=== PATIENT | male | born 1950 ===

== ENCOUNTER 2016-10-30 17:15 | Inpatient (IN) | payer SELFPAY ==
[2016-10-30] MEDS ORDERED: Sodium Chloride 0.9% 1,000 ML IV STA ×2 (17:35→19:46)
--- NOTE | 2016-10-30 17:41 | ED PDOC ---
HPI: Abdomen Time Seen by Provider: 10/30/16 17:28 Chief Complaint (Nursing): GI Problem Chief Complaint (Provider): vomiting History Per: Patient Additional Complaint(s): 65-year-old male with history of hypertension and coronary artery disease presents to emergency department with vomiting and diarrhea that started earlier today. Patient states vomitus looks like coffee grounds. Patient also had episode of bloody diarrhea at home. When he was in the bathroom he states he started to feel faint and almost passed out. He caught himself before he fell to the ground and denies any head injury or LOC. Patient feels nausea upon arrival. He denies any chest pain, SOB or PINEDA, no fever or chills. Patient states he takes plavix daily and he recently started taking naprosyn for chronic leg pain. Prior to starting the naprosyn, he was taking motrin daily to manage leg pain. Patient denies any abdominal pain or headache. Past Medical History Reviewed: Historical Data, Nursing Documentation, Vital Signs Vital Signs: Last Vital Signs Temp 98.1 F 10/30/16 17:17 Pulse 120 H 10/30/16 17:17 Resp 20 10/30/16 17:17 BP 106/69 10/30/16 17:17 Pulse Ox 100 10/30/16 18:39 - Medical History PMH: HTN, Hypercholesterolemia - Surgical History Surgical History: CABG - Family History Family History: States: No Known Family Hx - Living Arrangements Living Arrangements: With Family - Social History Current smoker - smoking cessation education provided: Yes (1/2 ppd) Alcohol: Social Drugs: Denies - Home Medications Home Medications: Ambulatory Orders Medication Instructions Recorded Clopidogrel [Plavix] 75 mg PO HS 06/09/16 Losartan/Hydrochlorothiazide 1 tab PO HS 06/09/16 [Losartan-Hctz 50-12.5 mg Tab] Metoprolol Tartrate [Lopressor] 25 mg PO Q12H 10/30/16 Multivitamin [Multi-Vitamin Daily] 1 tab PO DAILY 10/30/16 metFORMIN [glucOPHAGE] 500 mg PO DAILY 10/30/16 - Allergies Allergies/Adverse Reactions: Allergies Allergy/AdvReac Type Severity Reaction Status Date / Time No Known Allergies Allergy Verified 06/09/16 15:31 Review of Systems ROS Statement: Except As Marked, All Systems Reviewed And Found Negative Constitutional: Negative for: Fever Cardiovascular: Negative for: Chest Pain, Palpitations Respiratory: Negative for: Cough Gastrointestinal: Positive for: Nausea, Vomiting, Other (blood in stool, blood in vomit). Negative for: Abdominal Pain, Diarrhea Neurological: Negative for: Headache, Dizziness Physical Exam - Reviewed Nursing Documentation Reviewed: Yes Vital Signs Reviewed: Yes - Physical Exam Appears: Positive for: Well, Non-toxic, No Acute Distress Skin: Positive for: Pallor Eye Exam: Positive for: Normal appearance, EOMI, PERRL Cardiovascular/Chest: Positive for: Regular Rate, Rhythm Respiratory: Positive for: Normal Breath Sounds Gastrointestinal/Abdominal: Positive for: Soft. Negative for: Tenderness, Distended, Guarding, Rebound Back: Negative for: L CVA Tenderness, R CVA Tenderness Extremity: Positive for: Normal ROM. Negative for: Pedal Edema Neurologic/Psych: Positive for: Alert, Oriented - Laboratory Results Result Diagrams: 10/30/16 17:40 10/30/16 17:40 - ECG Interpretation Of ECG: Sinus tach 121 bpm with PVC's. Reviewed by PA and ED attending. O2 Sat by Pulse Oximetry: 100 Pulse Ox Interpretation: Normal - Other Rad CXR X-Ray: Interpreted by Me, Viewed By Me X-Ray Interpretation: ? mass left upper lobe Medical Decision Making Medical Decision Makin66 year old male with bloody vomitus and stool x 1 day Plan: EKG CXR IVF CBC CMP Trop PT PTT IV zofran PMD is Dr. Nichols, case was d/w Andrew Reagan who will admit patient. CXR shows ? TANGELA mass. CT chest, abd and pelvis ordered with IV and oral contrast. Case was d/w GI client care consultant, Dr. Cornelius who will see patient on consult. Protonix 40 mg IV q 12 hrs ordered as per Dr. Cornelius and drip was canceled. C diff also ordered as per Dr. Cornelius. Patient is aware of admission and agrees to stay. Disposition - Clinical Impression Clinical Impression: GI (gastrointestinal bleed) - Patient ED Disposition Is Patient to be Admitted: Yes - Disposition Disposition Time: 19:10 Condition: SERIOUS - Pt Status Changed To: Hospital Disposition Of: Inpatient - Admit Certification Admit to Inpatient:: After my assessment, the patient will require hospitalization for at least two midnights. This is because of the severity of symptoms shown, intensity of services needed, and/or the medical risk in this patient being treated as an outpatient. - POA Present On Arrival: None
[2016-10-30] MEDS ORDERED: Pantoprazole 40 MG in Sodium Chloride 0.9% 100 ML IVPB SCH (18:00)
[2016-10-30 18:12] LABS: BASO # 0.1 K/uL (0.0-0.2); BASO % 0.7 % (0.0-2.0); EOS # 0.1 K/uL (0.0-0.7); EOS % 0.7 % (0.0-4.0); HEMATOCRIT 27.3 % (35.0-51.0); LYMPH # 2.2 K/uL (1.0-4.3); LYMPH % 18.1 % (20.0-40.0); MEAN CELL VOLUME 96.5 fl (80.0-94.0); MEAN CORPUSCULAR HEMOGLOBIN 31.2 pg (27.0-31.0); MEAN CORPUSCULAR HGB CONC 32.3 g/dL (33.0-37.0); MEAN PLATELET VOLUME 7.2 fl (7.2-11.7); MONO # 0.7 K/uL (0.0-0.8); MONO % 5.6 % (0.0-10.0); NEUT # 9.2 K/uL (1.8-7.0); NEUT % 74.9 % (50.0-75.0); RED CELL DISTRIBUTION WIDTH 16.5 % (11.5-14.5); WHITE BLOOD COUNT 12.2 K/uL (4.8-10.8)
[2016-10-30] MEDS ORDERED: Iohexol 240 (50 ml) PO STA (18:39)
[2016-10-30 18:46] LABS: ALB/GLOB RATIO 1.1 (1.0-2.1); ALKALINE PHOSPHATASE 89 U/L (38-126); ALT/SGPT 22 U/L (21-72); AST/SGOT 34 U/L (17-59); BILIRUBIN,TOTAL 0.5 mg/dl (0.2-1.3); BLOOD UREA NITROGEN 58 mg/dl (9-20); CALCIUM 8.8 mg/dL (8.4-10.2); CARBON DIOXIDE 23 mmol/L (22-30); CHLORIDE 103 mmol/L (98-107); GFR AFRICAN-AMERICAN > 60; GLUCOSE,RANDOM 197 mg/dL (75-110); SODIUM 137 mmol/l (132-148); TOTAL PROTEIN 6.6 G/DL (6.3-8.2)
[2016-10-30 19:09] LABS: POTASSIUM 4.5 MMOL/L (3.6-5.0)
[2016-10-30 19:40] LABS: PARTIAL THROMBOPLASTIN TIME 21.9 SECONDS (23.3-32.5)
[2016-10-30 19:50] LABS: VENOUS BLOOD GAS BASE EXCESS 1.3 mmol/L (0.0-2.0); VENOUS BLOOD GAS PCO2 47 mmHg (40-60); VENOUS BLOOD PH 7.37 (7.32-7.43)
[2016-10-30] MEDS ORDERED: Iohexol 300 100 ML IJ ONE (22:05)
[2016-10-30] MEDS ORDERED: Sodium Chloride 0.9% 50 ML IV ONE (22:05)
[2016-10-30 23:41] VITALS: BMI 28.5
[2016-10-31] MEDS ORDERED: Pantoprazole 40 MG in Sodium Chloride 0.9% 100 ML IVPB SCH (00:30)
[2016-10-31] MEDS: Sodium Chloride 0.9% 1,000 ML IV SCH ×3 (00:43→20:00)
[2016-10-31] MEDS: Piperacillin/Tazobact 4.5 GM in Sodium Chloride 0.9% 100 ML IVPB SCH ×3 (01:04→17:09)
[2016-10-31] MEDS: Pantoprazole 40 MG in Sodium Chloride 0.9% 100 ML IV SCH ×3 (01:45→12:39)
[2016-10-31] MEDS ORDERED: Lidocaine 2% GEL TOP ONE (03:25)
[2016-10-31] MEDS: Lidocaine 5% Patch TD SCH ×2 (03:45→09:30)
--- NOTE | 2016-10-31 08:03 | RAD ---
HISTORY: clearance COMPARISON: No prior. FINDINGS: LUNGS: There is round opacities/ lesion at the left lung upper lobe suspicious for neoplasm. The differential diagnosis includes less likely rounded pneumonia. PLEURA: No significant pleural effusion identified, no pneumothorax apparent. CARDIOVASCULAR: Normal. OSSEOUS STRUCTURES: No significant abnormalities. VISUALIZED UPPER ABDOMEN: Normal. OTHER FINDINGS: None. IMPRESSION: Suspicious for mass lesion at the left lung upper lobe versus less likely pneumonia. Please correlate clinically. If indicated further assessment by CT of the chest may be obtained.
--- NOTE | 2016-10-31 08:14 | CP.PCM.HP ---
History of Present Illness - History of Present Illness History of Present Illness: pt admitted for syncope, coffee ground emesis and brbpr. pt was found on cxr and ct chest, abd and pelvis to have a mass to left upper chest. pt asmoke approx 1/2 ppd for approx 50 yrs. no further vomiting pt w/ some cough. Present on Admission - Present on Admission Any Indicators Present on Admission: No Review of Systems - Respiratory Respiratory: As Per HPI, Cough - Gastrointestinal Gastrointestinal: As Per HPI, Hematemesis, Hematochezia - Neurological Neurological: As Per HPI, Syncope Past Patient History - Past Medical History & Family History Past Medical History?: Yes - Past Social History Smoking Status: Current Some Days Smoker - CARDIAC Hx Hypercholesterolemia: Yes Hx Hypertension: Yes - PULMONARY Hx Respiratory Disorders: No Other/Comment: SMOKER - NEUROLOGICAL Hx Neurological Disorder: No - HEENT Hx HEENT Problems: No - RENAL Hx Chronic Kidney Disease: No - INTEGUMENTARY Hx Dermatological Problems: Yes Hx Cellulitis: Yes Other/Comment: CHRONIC LEG PAIN - MUSCULOSKELETAL/RHEUMATOLOGICAL Hx Falls: No - GASTROINTESTINAL Hx Gastrointestinal Disorders: No - GENITOURINARY/GYNECOLOGICAL Hx Genitourinary Disorders: No - PSYCHIATRIC Hx Substance Use: No - SURGICAL HISTORY Hx Coronary Artery Bypass Graft: Yes Hx Coronary Stent: Yes Hx Femoral-Popliteal Bypass Graft: Yes - ANESTHESIA Hx Anesthesia: Yes Hx Anesthesia Reactions: No Hx Malignant Hyperthermia: No Meds Allergies/Adverse Reactions: Allergies Allergy/AdvReac Type Severity Reaction Status Date / Time No Known Allergies Allergy Verified 06/09/16 15:31 Physical Exam - Constitutional Appears: Well, Non-toxic, No Acute Distress - Head Exam Head Exam: ATRAUMATIC, NORMAL INSPECTION, NORMOCEPHALIC - Eye Exam Eye Exam: EOMI, Normal appearance, PERRL Pupil Exam: NORMAL ACCOMODATION, PERRL - ENT Exam ENT Exam: Mucous Membranes Moist, Normal Exam - Neck Exam Neck exam: Positive for: Normal Inspection - Respiratory Exam Respiratory Exam: Clear to Auscultation Bilateral, NORMAL BREATHING PATTERN - Cardiovascular Exam Cardiovascular Exam: REGULAR RHYTHM, RRR, +S1, +S2 - GI/Abdominal Exam GI & Abdominal Exam: Normal Bowel Sounds, Soft. absent: Tenderness - Extremities Exam Extremities exam: Positive for: full ROM, normal capillary refill, normal inspection, pedal pulses present - Back Exam Back exam: NORMAL INSPECTION - Neurological Exam Neurological exam: Alert, CN II-XII Intact, Normal Gait, Oriented x3, Reflexes Normal - Psychiatric Exam Psychiatric exam: Normal Affect, Normal Mood - Skin Skin Exam: Dry, Intact, Normal Color, Warm Results - Vital Signs Recent Vital Signs: Last Vital Signs Temp 99.4 F 10/31/16 06:00 Pulse 115 H 10/31/16 06:00 Resp 23 10/31/16 06:00 BP 104/62 10/31/16 06:00 Pulse Ox 97 10/31/16 06:00 - Labs Result Diagrams: 10/30/16 17:40 10/30/16 17:40 Labs: Laboratory Results - last 24 hr 10/30/16 10/30/16 10/30/16 19:43 21:00 22:44 pO2 27 L VBG pH 7.37 VBG pCO2 47 VBG HCO3 24.6 VBG Total CO2 28.6 H VBG O2 Sat (Calc) 53.2 VBG Base Excess 1.3 VBG Potassium 3.6 Sodium 139.0 Chloride 108.0 H Glucose 150 H Lactate 2.6 H FiO2 21.0 Blood Gas Comments Lactate 2.6 Crit Value Called To [email or web address] Crit Value Called By 203 Crit Value Read Back Y Blood Gas Notified Time 1948 Venous Blood Potassium 3.6 Blood Type O POSITIVE O POSITIVE Antibody Screen Negative Crossmatch See Detail BBK History Checked No verified bt No verified bt Assessment & Plan (1) Lung mass Assessment and Plan: heme/onc, pulm smoking cessation Status: Acute (2) GI (gastrointestinal bleed) Assessment and Plan: gi ostretide ivf icu care zosyn Status: Acute (3) DVT prophylaxis Assessment and Plan: scd and ae hose no anticoag r/t gib Status: Acute Decision To Admit - Pt Status Changed To: Hospital Disposition Of: Inpatient - Admit Certification Admit to Inpatient:: After my assessment, the patient will require hospitalization for at least two midnights. This is because of the severity of symptoms shown, intensity of services needed, and/or the medical risk in this patient being treated as an outpatient. - . Bed Request Type: Intensive Care Admitting Physician: Lexi Nichols
[2016-10-31] MEDS ORDERED: Pneumococcal 23-Valent Vaccine IM ONE (09:00)
--- NOTE | 2016-10-31 09:06 | CP.CCUPN ---
CCU Subjective - Physician Review Events Since Last Encounter (Free Text): Chief complaint: N/V and GI Bleeding HPI: Pt is a 65-year-old male with a pmhx of hypertension, extensive 50 + pack year history of smoking and coronary artery disease presents to emergency department with vomiting and diarrhea that started earlier today accompanied by melena. Patient states vomitus looks like coffee grounds. When he was in the bathroom he states he started to feel faint and almost passed with no trauma. Patient states he takes plavix daily for extensive cardiac history which includes 11 stents and 5 prior ND's along with 4 vessel CABG. Pt recently started taking naprosyn for chronic leg pain. Last Vital Signs Temp 98.1 F 10/30/16 17: Pulse 120 H 10/30/16 17:17 Resp 20 10/30/16 17:17 BP 106/69 10/30/16 17:17 Pulse Ox 100 10/30/16 18:39 PMH: HTN, Hypercholesterolemia Surgical History: 4 vessel CABG Family History: No Known Family Hx Living Arrangements: With Family Social History- Current smoker - smoking cessation education provided: Yes (1/2 ppd) Home Medications: Ambulatory Orders Medication Instructions Recorded Clopidogrel [Plavix] 75 mg PO HS 06/09/16 Losartan/Hydrochlorothiazide 1 tab PO HS 06/09/16 [Losartan-Hctz 50-12.5 mg Tab] Metoprolol Tartrate [Lopressor] 25 mg PO Q12H 10/30/16 Multivitamin [Multi-Vitamin Daily] 1 tab PO DAILY 10/30/16 metFORMIN [glucOPHAGE] 500 mg PO DAILY 10/30/16 Allergies/Adverse Reactions: Allergies Allergy/AdvReac Type Severity Reaction Status Date / Time No Known Allergies Allergy Verified 06/09/16 15:31 - ECG Interpretation Of ECG: Sinus tach 121 bpm with PVC's. Reviewed by PA and ED attending. O2 Sat by Pulse Oximetry: 100 Pulse Ox Interpretation: Normal CCU Objective - Vital Signs / Intake & Output Vital Signs (Last 4 hours): Vital Signs Temp Pulse Resp BP Pulse Ox 10/31/16 06:00 99.4 F 115 H 23 104/62 97 Intake and Output (Last 8hrs): Intake & Output 10/30/16 10/31/16 10/31/16 22:59 06:59 14:59 Intake Total 1411 Output Total 880 Balance 531 Weight 171 lb 8 oz Intake: IV 750 Intake, Piggyback 100 Blood Product 561 Output: Urine 880 Urine, Voided 880 Other: # Bowel Movements 1 - Physical Exam Head: Positive for: Atraumatic, Normocephalic Pupils: Positive for: PERRL Extroacular Muscles: Positive for: EOMI Conjunctiva: Positive for: Normal Mouth: Positive for: Moist Mucous Membranes Neck: Positive for: Normal Range of Motion Respiratory/Chest: Positive for: Clear to Auscultation, Good Air Exchange, Respiratory Distress, Accessory Muscle Use Cardiovascular: Positive for: Regular Rate and Rhythm, Murmurs, Normal S1, S2 Upper Extremity: Positive for: Normal Inspection, Cyanosis, Edema Lower Extremity: Positive for: Normal Inspection, Edema Neurological: Positive for: GCS=15, CN II-XII Intact, Speech Normal Skin: Positive for: Diaphoretic Psychiatric: Positive for: Alert, Oriented x 3, Normal Insight, Normal Concentration - Medications Active Medications: Active Medications Generic Name Dose Route Start Last Admin Trade Name Freq PRN Reason Stop Dose Admin Sodium Chloride 1,000 mls @ 150 mls/hr 10/31/16 00:30 10/31/16 00:43 Sodium Chloride 0.9% IV 11/01/16 00:25 150 mls/hr .Q6H40M JOSE Administration Octreotide Acetate 1,250 mcg/ 252.5 mls @ 10.1 mls/hr 10/31/16 00:30 01:05 Sodium Chloride IV 10.1 mls/hr .Q24H JOSE Administration Protocol 50 MCG/HR Pantoprazole Sodium 40 mg/ 100 mls @ 20 mls/hr 10/31/16 00:30 10/31/16 06:08 Sodium Chloride IV 20 mls/hr .Q5H JOSE Administration 8 MG/HR Piperacillin Sod/Tazobactam 100 mls @ 100 mls/hr 10/31/16 01:00 10/31/16 01: 04 Sod 4.5 gm/ Sodium Chloride IVPB 100 mls/hr Q8 JOSE Administration Lidocaine 1 ea 10/31/16 09:00 10/31/16 03:45 Lidoderm TD 1 ea DAILY JOSE Administration Ondansetron HCl 4 mg 10/31/16 00:39 Zofran Inj IVP Q6 PRN Nausea/Vomiting Pantoprazole Sodium 40 mg 10/31/16 18:00 Protonix Inj IVP Q12 JOSE Pneumococcal Polyvalent Vaccine 0.5 ml 10/31/16 09:00 Pneumovax 23 Vaccine IM 10/31/16 09:01 .ONCE ONE - Patient Studies Lab Studies: Lab Studies 10/30/16 10/30/16 10/30/16 Range/Units 22:44 21:00 19:43 pO2 27 L (30-55) mm/Hg VBG pH 7.37 (7.32-7.43) VBG pCO2 47 (40-60) mmHg VBG HCO3 24.6 mmol/L VBG Total CO2 28.6 H (22-28) mmol/L VBG O2 Sat (Calc) 53.2 (40-65) % VBG Base Excess 1.3 (0.0-2.0) mmol/L VBG Potassium 3.6 (3.6-5.2) mmol/L Sodium 139.0 (132-148) mmol/L Chloride 108.0 H (98-107) mmol/L Glucose 150 H (75-110) mg/dL Lactate 2.6 H (0.7-2.1) mmol/L FiO2 21.0 % Blood Gas Comments Lactate 2.6 Crit Value Called To [email or web address] Crit Value Called By Crit Value Read Back Y Blood Gas Notified Time 1948 Venous Blood Potassium 3.6 (3.6-5.2) mmol/L Blood Type O POSITIVE O POSITIVE Antibody Screen Negative Crossmatch See Detail BBK History Checked No verified bt No verified bt Laboratory Results - last 24 hr 10/30/16 10/30/16 10/30/16 19:43 21:00 22:44 pO2 27 L VBG pH 7.37 VBG pCO2 47 VBG HCO3 24.6 VBG Total CO2 28.6 H VBG O2 Sat (Calc) 53.2 VBG Base Excess 1.3 VBG Potassium 3.6 Sodium 139.0 Chloride 108.0 H Glucose 150 H Lactate 2.6 H FiO2 21.0 Blood Gas Comments Lactate 2.6 Crit Value Called To Robinjulienne Crit Value Called By 203 Crit Value Read Back Y Blood Gas Notified Time 1948 Venous Blood Potassium 3.6 Blood Type O POSITIVE O POSITIVE Antibody Screen Negative Crossmatch See Detail BBK History Checked No verified bt No verified bt Review of Systems - EENT Eyes: UNREMARKABLE Ears: UNREMARKABLE Nose/Mouth/Throat: UNREMARKABLE - Cardiovascular Cardiovascular: UNREMARKABLE - Respiratory Respiratory: UNREMARKABLE - Gastrointestinal Gastrointestinal: UNREMARKABLE - Genitourinary Genitourinary: UNREMARKABLE - Musculoskeletal Musculoskeletal: UNREMARKABLE - Integumentary Integumentary: UNREMARKABLE - Neurological Neurological: UNREMARKABLE - Psychiatric Psychiatric: UNREMARKABLE - Endocrine Endocrine: UNREMARKABLE - Hematologic/Lymphatic Hematologic: UNREMARKABLE Critical Care Progress Note - Ventilator Checklist Head of Bed 30 Degrees: Yes Daily Sedation Vacation: No Daily Assessment of Readiness to Wean: No Daily Spontaneous Breathing Trial: No PUD Prophalyxis: No DVT Prophylaxis: No Oral Care with Chlorhexidine Gluconate {CHG}: No - Nutrition Nutrition: Nutrition Category Date Time Status NPO Diet [DIET] Diets 10/30/16 Breakfast Active Assessment/Plan - Assessment and Plan (Free Text) Assessment: Admit to MICU 1) Upper Gi bleeding - protonix drip started - 2 units prbc transfused - 1 unit platelets due to use of plavix and continued gi bleed - Dr. faustin called Sandostatin drip started due to h/o of ETOH and possible varices 2) H/o CABG and CAD along with previous ND - goal on Hg is to bring closer to 10 3) HTN- currently high will hold all bp medications for now until the pt can be stabilized - Date & Time Date: 10/31/16 Time: 09:13
--- NOTE | 2016-10-31 10:11 | CARD ---
APPROVED REPORT EKG Measurement Heart [id number] <Conclusion> Sinus tachycardia with occasional premature ventricular complexes Inferior infarct, age undetermined Abnormal ECG
--- NOTE | 2016-10-31 12:00 | CT ---
PROCEDURE: CT Chest, Abdomen and Pelvis with intravenous contrast HISTORY: assess ? TANGELA mass, GI bleed COMPARISON: October 30, 2016. Chest radiograph. Summary of findings on the comparison examination: Left upper lobe mass suspicious for neoplasm. GI bleed. TECHNIQUE: IV dose administered: 95 cc Omnipaque 300. Radiation dose: Total exam DLP = 1215.85 mGy-cm. This CT exam was performed using one or more of the following dose reduction techniques: Automated exposure control, adjustment of the mA and/or kV according to patient size, and/or use of iterative reconstruction technique. FINDINGS: CT CHEST WITH CONTRAST: LUNGS: Spiculated irregular partially necrotic left upper lobe mass is 4.7 x 5.9 x 5.1 cm. The finding undoubtedly represents neoplasm. Additional smaller lesions in the left lung including superior segment pleural base mass 1.3 x 1.7 cm. Additional nodular densities scattered throughout the left upper and left lower lobe. There are no pulmonary nodules in the right lung. MEDIASTINUM: Unremarkable. Normal caliber aorta and pulmonary arterial trunk. No aortic dissection. Normal size heart. LYMPH NODES: No appreciable lymphadenopathy or other findings to suggest metastatic disease beyond the the right lung/pleura. PLEURA: Unremarkable. No pneumothorax. No pleural fluid. BONES: Unremarkable. OTHER FINDINGS: None. CT ABDOMEN AND PELVIS: LIVER: Hepatic steatosis. No focal masses. No intrahepatic bile duct dilatation or perihepatic ascites. GALLBLADDER AND BILE DUCTS: Unremarkable. PANCREAS: Unremarkable. No gross lesion or ductal dilatation. SPLEEN: Unremarkable. ADRENALS: Unremarkable. No mass. KIDNEYS AND URETERS: Punctate nonobstructing left renal calculi none larger than 3 mm. Incidental finding(s): Right renal cysts. No hydronephrosis. No solid mass. VASCULATURE: Unremarkable. No aortic aneurysm. BOWEL: Unremarkable. No obstruction. No gross mural thickening. No evidence of mass, inflammatory bowel disease/colitis. APPENDIX: No abnormalities to suggest acute appendicitis. No right lower quadrant inflammatory processes identified. PERITONEUM: Unremarkable. No free fluid. No free air. LYMPH NODES: Unremarkable. No enlarged lymph nodes. BLADDER: Diffuse bladder wall thickening without focal abnormality. REPRODUCTIVE: Enlarged prostate impressing on the base of the bladder. BONES: No acute fracture. OTHER FINDINGS: None. IMPRESSION: Irregular necrotic left upper lobe mass with additional pulmonary nodules/ metastasis confined to the left lung. No evidence of metastatic disease to the abdomen retroperitoneum, pelvis. Incidental finding(s): Concordant results (preliminary interpretation) provided by [facility]. Procedure Completed: 22:32 Preliminary ([facility]) Report: Dictated and Authenticated: 23:04. Final Interpretation: 11:58. October 31, 2016.
[2016-10-31 12:02] LABS: HEMATOCRIT 24.8 % (35.0-51.0)
--- NOTE | 2016-10-31 16:17 | CP.PCM.CON ---
History of Present Illness - History of Present Illness History of Present Illness: 66 year old male with a history of tobacco abuse, HTN, CAD s/p CABG, admitted with GI bleeding, anemia, and lung mass. The patient report to vomiting coffee grounds and having dark black stools for about 1 day. He had chocolate cake the night prior and thought it may be related to this. The following morning he vomited more coffee ground material and had a black bowel movement. He began to feel dizzy and passed out which prompted his to call an ambulance. He is currently s/p PRBC and platelet transfusion. He is feeling better. A CT of C/A/P revealed a spiculated TANGELA mass with addition smaller nodules involving the same lung. Past medical history: tobacco abuse, HTN, CAD s/p CABG Past surgical history: CABG Family history: Denies hematologic and oncologic problems Social history: 1ppd x 50 years, 2 beers daily, denies illicit drug use. Allergies: NKA Review of systems: All remaining review of systems including HEENT, cardiovascular, respiratory, gastrointestinal, genitourinary, musculoskeletal, dermatologic, neurologic, and psychiatric are negative unless mentioned in the HPI. Past Patient History - Past Medical History & Family History Past Medical History?: Yes - Past Social History Smoking Status: Current Some Days Smoker - CARDIAC Hx Hypercholesterolemia: Yes Hx Hypertension: Yes - PULMONARY Hx Respiratory Disorders: No Other/Comment: SMOKER - NEUROLOGICAL Hx Neurological Disorder: No - HEENT Hx HEENT Problems: No - RENAL Hx Chronic Kidney Disease: No - INTEGUMENTARY Hx Dermatological Problems: Yes Hx Cellulitis: Yes Other/Comment: CHRONIC LEG PAIN - MUSCULOSKELETAL/RHEUMATOLOGICAL Hx Falls: No - GASTROINTESTINAL Hx Gastrointestinal Disorders: No - GENITOURINARY/GYNECOLOGICAL Hx Genitourinary Disorders: No - PSYCHIATRIC Hx Substance Use: No - SURGICAL HISTORY Hx Coronary Artery Bypass Graft: Yes Hx Coronary Stent: Yes Hx Femoral-Popliteal Bypass Graft: Yes - ANESTHESIA Hx Anesthesia: Yes Hx Anesthesia Reactions: No Hx Malignant Hyperthermia: No Meds Allergies/Adverse Reactions: Allergies Allergy/AdvReac Type Severity Reaction Status Date / Time No Known Allergies Allergy Verified 06/09/16 15:31 - Medications Medications: Current Medications Sodium Chloride (Sodium Chloride 0.9%) 1,000 mls @ 150 mls/hr IV .Q6H40M JOSE Stop: 11/01/16 00:25 Last Admin: 10/31/16 09:24 Dose: 150 mls/hr Octreotide Acetate 1,250 mcg/ (Sodium Chloride) 252.5 mls @ 10.1 mls/hr IV .Q24H JOSE; 50 MCG/HR PRN Reason: Protocol Last Admin: 10/31/16 01:05 Dose: 10.1 mls/hr Piperacillin Sod/Tazobactam (Sod 4.5 gm/ Sodium Chloride) 100 mls @ 100 mls/hr IVPB Q8 JOSE Last Admin: 10/31/16 09:33 Dose: 100 mls/hr Pantoprazole Sodium 40 mg/ (Sodium Chloride) 100 mls @ 20 mls/hr IV 5XD JOSE Lidocaine (Lidoderm) 1 ea TD DAILY JOSE Last Admin: 10/31/16 09:30 Dose: 1 ea Ondansetron HCl (Zofran Inj) 4 mg IVP Q6 PRN PRN Reason: Nausea/Vomiting Pantoprazole Sodium (Protonix Inj) 40 mg IVP Q12 JOSE Physical Exam - Head Exam Head Exam: ATRAUMATIC - Eye Exam Eye Exam: Normal appearance - ENT Exam ENT Exam: Mucous Membranes Dry - Respiratory Exam Respiratory Exam: Clear to Auscultation Bilateral - Cardiovascular Exam Cardiovascular Exam: +S1, +S2 - GI/Abdominal Exam GI & Abdominal Exam: Normal Bowel Sounds - Extremities Exam Extremities exam: Positive for: normal inspection - Neurological Exam Neurological exam: Oriented x3 - Psychiatric Exam Psychiatric exam: Normal Affect, Normal Mood - Skin Skin Exam: Warm Results - Vital Signs Recent Vital Signs: Last Vital Signs Temp 98.5 F 10/31/16 12:00 Pulse 111 H 10/31/16 12:00 Resp 15 10/31/16 12:00 BP 121/68 10/31/16 12:00 Pulse Ox 97 10/31/16 12:00 - Labs Result Diagrams: 10/31/16 11:30 10/30/16 17:40 Labs: Laboratory Results - last 24 hr 10/30/16 10/30/16 10/30/16 19:43 21:00 22:44 Hgb Hct pO2 27 L VBG pH 7.37 VBG pCO2 47 VBG HCO3 24.6 VBG Total CO2 28.6 H VBG O2 Sat (Calc) 53.2 VBG Base Excess 1.3 VBG Potassium 3.6 Sodium 139.0 Chloride 108.0 H Glucose 150 H Lactate 2.6 H FiO2 21.0 Blood Gas Comments Lactate 2.6 Crit Value Called To [email or web address] Crit Value Called By 203 Crit Value Read Back Y Blood Gas Notified Time 1948 Prostate Specific Ag Venous Blood Potassium 3.6 C. difficile Ag & Toxin Blood Type O POSITIVE O POSITIVE Antibody Screen Negative Crossmatch See Detail BBK History Checked No verified bt No verified bt 10/31/16 10/31/16 10/31/16 00:09 11:30 11:30 Hgb 8.5 L Hct 24.8 L pO2 VBG pH VBG pCO2 VBG HCO3 VBG Total CO2 VBG O2 Sat (Calc) VBG Base Excess VBG Potassium Sodium Chloride Glucose Lactate FiO2 Blood Gas Comments Crit Value Called To Crit Value Called By Crit Value Read Back Blood Gas Notified Time Prostate Specific Ag 0.764 Venous Blood Potassium C. difficile Ag & Toxin Positive antigen Blood Type Antibody Screen Crossmatch BBK History Checked Assessment & Plan (1) Anemia Assessment and Plan: GI blood loss transfusion support PRN will check ferritin, retic count, b12, folate Status: Acute (2) Lung mass Assessment and Plan: concerning for malignancy recommend pulmonary evaluation and biopsy when more clinically stable Status: Acute (3) Tobacco abuse Assessment and Plan: smoking cessation discussed at length with the patient Thank you for this interesting consult. Status: Acute
[2016-10-31] MEDS ORDERED: Pantoprazole 40 MG in Sodium Chloride 0.9% 100 ML IV SCH (17:00)
[2016-10-31 18:51] LABS: HEMATOCRIT 23.1 % (35.0-51.0); MEAN CELL VOLUME 92.7 fl (80.0-94.0); MEAN CORPUSCULAR HEMOGLOBIN 32.4 pg (27.0-31.0); MEAN CORPUSCULAR HGB CONC 34.9 g/dL (33.0-37.0); RED CELL DISTRIBUTION WIDTH 15.9 % (11.5-14.5); WHITE BLOOD COUNT 10.2 K/uL (4.8-10.8)
--- NOTE | 2016-11-01 00:06 | CON ---
DATE: 10/31/2016 REFERRING PHYSICIAN: Dr. Reagan. REASON FOR CONSULTATION: Coffee ground emesis HISTORY OF PRESENT ILLNESS: This is a 66-year-old smoker who comes in for shortness of breath, near syncope, coffee ground emesis. The patient has some cough, vomiting. No heartburn, reflux, no pain, no weight loss. Currently lying in bed comfortable, in no apparent distress. PAST MEDICAL HISTORY: As above. PAST SURGICAL HISTORY: As above. MEDICATIONS: Have been reviewed. REVIEW OF SYSTEMS: All systems have been reviewed and negative apart in HPI. PHYSICAL EXAMINATION: VITAL SIGNS: Here in the hospital grossly unremarkable. GENERAL: A pleasant, elderly-appearing male lying in bed, comfortable, in no apparent distress. HEAD: Normocephalic, atraumatic. EYES: Pupils equally reactive to light bilaterally. No conjunctival pallor or icterus. NECK: Supple, normal range of motion. No lymphadenopathy appreciated. LUNGS: Clear to auscultation bilaterally. HEART: S1, S2. Regular rate and rhythm. No murmurs appreciated. ABDOMEN: Soft, nontender. Bowel sounds present. RECTAL: Deferred. EXTREMITIES: Pulses present bilaterally. SKIN: Warm, dry and intact. NEUROLOGIC: Alert and oriented x 3. LABORATORY DATA: Labs reviewed. WBC is 12.3, down to 11.3; hemoglobin is 8.8, hematocrit 33.1, plat elet count is 210. INR 1.09. CAT scan and pelvis is pending. ASSESSMENT AND PLAN: This is a 66-year-old man with coffee ground emesis. From a gastrointestinal s tandpoint, unclear etiology. He does have a mass on x-ray of the lungs, which needs followup with a CAT scan of the lungs. Also recommend getting a CAT scan of the abdomen and pelvis. From a GI stand point, PPI twice a day, consider endoscopy as indicated. Pulmonary consult appreciated. Thank you for the consult. Mayito Cordova MD, PhD cc:Andrew DEL TORO [phone] TT: 11/01/2016 00:05:27 Confirmation # [id number] Dictation # [id number] mn
[2016-11-01] MEDS: Piperacillin/Tazobact 4.5 GM in Sodium Chloride 0.9% 100 ML IVPB SCH ×3 (01:23→17:10)
[2016-11-01] MEDS: Sodium Chloride 0.9% 1,000 ML IV SCH ×2 (03:00→14:50)
[2016-11-01 06:11] LABS: BASO % 0.4 % (0.0-2.0); EOS # 0.1 K/uL (0.0-0.7); EOS % 1.4 % (0.0-4.0); LYMPH # 1.9 K/uL (1.0-4.3); LYMPH % 18.2 % (20.0-40.0); MEAN CORPUSCULAR HEMOGLOBIN 31.8 pg (27.0-31.0); MEAN CORPUSCULAR HGB CONC 34.1 g/dL (33.0-37.0); MEAN PLATELET VOLUME 7.1 fl (7.2-11.7); MONO # 1.1 K/uL (0.0-0.8); MONO % 10.8 % (0.0-10.0); NEUT # 7.1 K/uL (1.8-7.0); NEUT % 69.2 % (50.0-75.0); NRBC % 0.1 % (0.0-0.0); RED CELL DISTRIBUTION WIDTH 16.1 % (11.5-14.5); WHITE BLOOD COUNT 10.3 K/uL (4.8-10.8)
[2016-11-01 06:22] LABS: ALB/GLOB RATIO 1.1 (1.0-2.1); ALKALINE PHOSPHATASE 82 U/L (38-126); ALT/SGPT 26 U/L (21-72); AST/SGOT 36 U/L (17-59); BILIRUBIN,TOTAL 0.5 mg/dl (0.2-1.3); BLOOD UREA NITROGEN 11 mg/dl (9-20); CALCIUM 8.3 mg/dL (8.4-10.2); CARBON DIOXIDE 25 mmol/L (22-30); CHLORIDE 107 mmol/L (98-107); GFR AFRICAN-AMERICAN > 60; GLUCOSE,RANDOM 109 mg/dL (75-110); POTASSIUM 3.2 MMOL/L (3.6-5.0); SODIUM 140 mmol/l (132-148); TOTAL PROTEIN 5.6 G/DL (6.3-8.2)
--- NOTE | 2016-11-01 07:42 | CP.PCM.PN ---
Subjective - Date & Time of Evaluation Date of Evaluation: 11/01/16 Time of Evaluation: 07:42 - Subjective Subjective: pt comfortable in bed, still w/ dark stools, for egd this am bw noted. no cp, dyspnea, no abd pain. nof /c, n/v/d. consults noted. Objective - Vital Signs/Intake and Output Vital Signs (last 24 hours): Temp Pulse Resp BP Pulse Ox 98.2 F 82 25 H 114/43 L 95 11/01/16 04:00 11/01/16 06:00 11/01/16 06:00 11/01/16 06:00 11/01/16 06:00 Intake and Output: 11/01/16 11/01/16 06:59 18:59 Intake Total 1900 Output Total 200 Balance 1700 - Medications Medications: Current Medications Piperacillin Sod/Tazobactam (Sod 4.5 gm/ Sodium Chloride) 100 mls @ 100 mls/hr IVPB Q8 JOSE Last Admin: 11/01/16 01:23 Dose: 100 mls/hr Lidocaine (Lidoderm) 1 ea TD DAILY JOSE Last Admin: 10/31/16 09:30 Dose: 1 ea Ondansetron HCl (Zofran Inj) 4 mg IVP Q6 PRN PRN Reason: Nausea/Vomiting Pantoprazole Sodium (Protonix Inj) 40 mg IVP Q12 JOSE Last Admin: 10/31/16 20:25 Dose: 40 mg - Labs Labs: 11/01/16 04:20 11/01/16 04:20 PT 11.3 SECONDS (9.6-11.2) H 10/30/16 17:40 INR 1.09 (0.92-1.08) H 10/30/16 17:40 APTT 21.9 SECONDS (23.3-32.5) L 10/30/16 17:40 - Constitutional Appears: Well, Non-toxic, No Acute Distress - Head Exam Head Exam: ATRAUMATIC, NORMAL INSPECTION, NORMOCEPHALIC - Eye Exam Eye Exam: EOMI, Normal appearance, PERRL Pupil Exam: NORMAL ACCOMODATION, PERRL - ENT Exam ENT Exam: Mucous Membranes Moist, Normal Exam - Neck Exam Neck Exam: Full ROM, Normal Inspection. absent: Lymphadenopathy - Respiratory Exam Respiratory Exam: Clear to Ausculation Bilateral, NORMAL BREATHING PATTERN - Cardiovascular Exam Cardiovascular Exam: REGULAR RHYTHM, RRR, +S1, +S2. absent: Murmur - GI/Abdominal Exam GI & Abdominal Exam: Soft, Normal Bowel Sounds. absent: Tenderness - Rectal Exam Rectal Exam: NORMAL INSPECTION - Extremities Exam Extremities Exam: Full ROM, Normal Capillary Refill, Normal Inspection. absent : Joint Swelling, Pedal Edema - Back Exam Back Exam: NORMAL INSPECTION - Neurological Exam Neurological Exam: Alert, Awake, CN II-XII Intact, Normal Gait, Oriented x3 - Psychiatric Exam Psychiatric exam: Normal Affect, Normal Mood - Skin Skin Exam: Dry, Intact, Normal Color, Warm Assessment and Plan (1) Lung mass Status: Acute (2) GI (gastrointestinal bleed) Status: Acute (3) DVT prophylaxis Status: Acute - Assessment and Plan (Free Text) Assessment: (1) Lung mass Assessment and Plan: heme/onc, pulm smoking cessation Status: Acute (2) GI (gastrointestinal bleed) Assessment and Plan: gi ostretide ivf icu care zosyn egd today transfuse prn Status: Acute (3) DVT prophylaxis Assessment and Plan: scd and ae hose no anticoag r/t gib Status: Acute
[2016-11-01] MEDS: Lidocaine 5% Patch TD SCH (08:50)
--- NOTE | 2016-11-01 09:56 | CP.CCUPN ---
CCU Subjective - Physician Review Events Since Last Encounter (Free Text): 11/01/16 09:56 The Patient was seen and examined at the bedside, Medical records reviewed, all clinical/lab/hemodynamic/radiographic data were reviewed and management issues were discussed and formulated, Events reviewed Pain issues, skin care, head of the bed elevation, GI/DVT prophylaxis, glycemic control were addressed. No further GI bleeding, slight Hb drop, Scheduled for endoscopy today NPO Hemodynamically stable Oncology and Pulmonary consulted to evaluate Irregular necrotic left upper lobe mass with additional pulmonary nodules/ metastasis confined to the left lung. 11/01/16 11:13 Exam Date : 10/30/2016 22:23:14 ( Approved ) PROCEDURE: CT Chest, Abdomen and Pelvis with intravenous contrast CT CHEST WITH CONTRAST: LUNGS: Spiculated irregular partially necrotic left upper lobe mass is 4.7 x 5.9 x 5.1 cm. The finding undoubtedly represents neoplasm. Additional smaller lesions in the left lung including superior segment pleural base mass 1.3 x 1.7 cm. Additional nodular densities scattered throughout the left upper and left lower lobe. There are no pulmonary nodules in the right lung. MEDIASTINUM: Unremarkable. Normal caliber aorta and pulmonary arterial trunk. No aortic dissection. Normal size heart. LYMPH NODES: No appreciable lymphadenopathy or other findings to suggest metastatic disease beyond the the right lung/pleura. PLEURA: Unremarkable. No pneumothorax. No pleural fluid. BONES: Unremarkable. OTHER FINDINGS: None. CT ABDOMEN AND PELVIS: LIVER: Hepatic steatosis. No focal masses. No intrahepatic bile duct dilatation or perihepatic ascites. GALLBLADDER AND BILE DUCTS: Unremarkable. PANCREAS: Unremarkable. No gross lesion or ductal dilatation. SPLEEN: Unremarkable. ADRENALS: Unremarkable. No mass. KIDNEYS AND URETERS: Punctate nonobstructing left renal calculi none larger than 3 mm. Incidental finding(s): Right renal cysts. No hydronephrosis. No solid mass. VASCULATURE: Unremarkable. No aortic aneurysm. BOWEL: Unremarkable. No obstruction. No gross mural thickening. No evidence of mass, inflammatory bowel disease/colitis. APPENDIX: No abnormalities to suggest acute appendicitis. No right lower quadrant inflammatory processes identified. PERITONEUM: Unremarkable. No free fluid. No free air. LYMPH NODES: Unremarkable. No enlarged lymph nodes. BLADDER: Diffuse bladder wall thickening without focal abnormality. REPRODUCTIVE: Enlarged prostate impressing on the base of the bladder. BONES: No acute fracture. OTHER FINDINGS: None. IMPRESSION: Irregular necrotic left upper lobe mass with additional pulmonary nodules/ metastasis confined to the left lung. No evidence of metastatic disease to the abdomen retroperitoneum, pelvis. CCU Objective - Vital Signs / Intake & Output Vital Signs (Last 4 hours): Vital Signs Temp Pulse Resp BP Pulse Ox 11/01/16 08:50 98.6 F 88 21 107/53 L 98 11/01/16 06:00 82 25 H 114/43 L 95 Intake and Output (Last 8hrs): Intake & Output 10/31/16 11/01/16 11/01/16 22:59 06:59 14:59 Intake Total 960 1300 Output Total 200 Balance 760 1300 Intake: IV 900 1200 Intake, Piggyback 60 100 Output: Urine 200 Urine, Voided 200 Other: # Voids Urine, Voided 1 1 # Bowel Movements 1 1 - Physical Exam Head: Positive for: Atraumatic, Normocephalic Pupils: Positive for: PERRL Extroacular Muscles: Positive for: EOMI Conjunctiva: Positive for: Normal Mouth: Positive for: Moist Mucous Membranes Neck: Positive for: Normal Range of Motion Respiratory/Chest: Positive for: Clear to Auscultation, Good Air Exchange, Respiratory Distress, Accessory Muscle Use Cardiovascular: Positive for: Regular Rate and Rhythm, Murmurs, Normal S1, S2 Upper Extremity: Positive for: Normal Inspection, Cyanosis, Edema Lower Extremity: Positive for: Normal Inspection, Edema Neurological: Positive for: GCS=15, CN II-XII Intact, Speech Normal Skin: Positive for: Diaphoretic Psychiatric: Positive for: Alert, Oriented x 3, Normal Insight, Normal Concentration - Medications Active Medications: Active Medications Generic Name Dose Route Start Last Admin Trade Name Freq PRN Reason Stop Dose Admin Piperacillin Sod/Tazobactam 100 mls @ 100 mls/hr 10/31/16 01:00 11/01/16 08: 51 Sod 4.5 gm/ Sodium Chloride IVPB 100 mls/hr Q8 JOSE Administration Lidocaine 1 ea 10/31/16 09:00 11/01/16 08:50 Lidoderm TD 1 ea DAILY JOSE Administration Ondansetron HCl 4 mg 10/31/16 00:39 Zofran Inj IVP Q6 PRN Nausea/Vomiting Pantoprazole Sodium 40 mg 10/31/16 18:00 11/01/16 08:51 Protonix Inj IVP 40 mg Q12 JOSE Administration - Patient Studies Lab Studies: Lab Studies 11/01/16 11/01/16 10/31/16 Range/Units 04:20 04:20 18:45 WBC 10.3 10.2 (4.8-10.8) K/uL RBC 2.47 L 2.50 L (4.40-5.90) Mil/uL Hgb 7.8 L 8.1 L (12.0-18.0) g/dL Hct 23.0 L 23.1 L (35.0-51.0) % MCV 93.0 92.7 D (80.0-94.0) fl MCH 31.8 H 32.4 H (27.0-31.0) pg MCHC 34.1 34.9 (33.0-37.0) g/dL RDW 16.1 H 15.9 H (11.5-14.5) % Plt Count 201 210 (130-400) K/uL MPV 7.1 L (7.2-11.7) fl Neut % (Auto) 69.2 (50.0-75.0) % Lymph % (Auto) 18.2 L (20.0-40.0) % Daggett % (Auto) 10.8 H (0.0-10.0) % Eos % (Auto) 1.4 (0.0-4.0) % Baso % (Auto) 0.4 (0.0-2.0) % Neut # 7.1 H (1.8-7.0) K/uL Lymph # 1.9 (1.0-4.3) K/uL Daggett # 1.1 H (0.0-0.8) K/uL Eos # 0.1 (0.0-0.7) K/uL Baso # 0.0 (0.0-0.2) K/uL Sodium 140 (132-148) mmol/l Potassium 3.2 L (3.6-5.0) MMOL/L Chloride 107 (98-107) mmol/L Carbon Dioxide 25 (22-30) mmol/L Anion Gap 11 (10-20) BUN 11 (9-20) mg/dl Creatinine 0.6 L (0.8-1.5) mg/dL Est GFR ( Amer) > 60 Est GFR (Non-Af Amer) > 60 Random Glucose 109 (75-110) mg/dL Calcium 8.3 L (8.4-10.2) mg/dL Ferritin 46.2 ng/mL Total Bilirubin 0.5 (0.2-1.3) mg/dl AST 36 (17-59) U/L ALT 26 (21-72) U/L Alkaline Phosphatase 82 (38-126) U/L Total Protein 5.6 L (6.3-8.2) G/DL Albumin 2.9 L (3.5-5.0) g/dL Globulin 2.7 (2.2-3.9) gm/dL Albumin/Globulin Ratio 1.1 (1.0-2.1) Prostate Specific Ag (0.00-4.0) ng/ML Vitamin B12 525 (239-931) pg/mL C. difficile Ag & Toxin (NEGATIVE) 10/31/16 10/31/16 10/31/16 Range/Units 11:30 11:30 00:09 WBC (4.8-10.8) K/uL RBC (4.40-5.90) Mil/uL Hgb 8.5 L (12.0-18.0) g/dL Hct 24.8 L (35.0-51.0) % MCV (80.0-94.0) fl MCH (27.0-31.0) pg MCHC (33.0-37.0) g/dL RDW (11.5-14.5) % Plt Count (130-400) K/uL MPV (7.2-11.7) fl Neut % (Auto) (50.0-75.0) % Lymph % (Auto) (20.0-40.0) % Daggett % (Auto) (0.0-10.0) % Eos % (Auto) (0.0-4.0) % Baso % (Auto) (0.0-2.0) % Neut # (1.8-7.0) K/uL Lymph # (1.0-4.3) K/uL Daggett # (0.0-0.8) K/uL Eos # (0.0-0.7) K/uL Baso # (0.0-0.2) K/uL Sodium (132-148) mmol/l Potassium (3.6-5.0) MMOL/L Chloride (98-107) mmol/L Carbon Dioxide (22-30) mmol/L Anion Gap (10-20) BUN (9-20) mg/dl Creatinine (0.8-1.5) mg/dL Est GFR ( Amer) Est GFR (Non-Af Amer) Random Glucose (75-110) mg/dL Calcium (8.4-10.2) mg/dL Ferritin ng/mL Total Bilirubin (0.2-1.3) mg/dl AST (17-59) U/L ALT (21-72) U/L Alkaline Phosphatase (38-126) U/L Total Protein (6.3-8.2) G/DL Albumin (3.5-5.0) g/dL Globulin (2.2-3.9) gm/dL Albumin/Globulin Ratio (1.0-2.1) Prostate Specific Ag 0.764 (0.00-4.0) ng/ML Vitamin B12 (239-931) pg/mL C. difficile Ag & Toxin Positive antigen (NEGATIVE) Laboratory Results - last 24 hr 10/31/16 10/31/16 10/31/16 00:09 11:30 11:30 WBC RBC Hgb 8.5 L Hct 24.8 L MCV MCH MCHC RDW Plt Count MPV Neut % (Auto) Lymph % (Auto) Daggett % (Auto) Eos % (Auto) Baso % (Auto) Neut # Lymph # Daggett # Eos # Baso # Sodium Potassium Chloride Carbon Dioxide Anion Gap BUN Creatinine Est GFR ( Amer) Est GFR (Non-Af Amer) Random Glucose Calcium Ferritin Total Bilirubin AST ALT Alkaline Phosphatase Total Protein Albumin Globulin Albumin/Globulin Ratio Prostate Specific Ag 0.764 Vitamin B12 C. difficile Ag & Toxin Positive antigen 10/31/16 11/01/16 11/01/16 18:45 04:20 04:20 WBC 10.2 10.3 RBC 2.50 L 2.47 L Hgb 8.1 L 7.8 L Hct 23.1 L 23.0 L MCV 92.7 D 93.0 MCH 32.4 H 31.8 H MCHC 34.9 34.1 RDW 15.9 H 16.1 H Plt Count 210 201 MPV 7.1 L Neut % (Auto) 69.2 Lymph % (Auto) 18.2 L Daggett % (Auto) 10.8 H Eos % (Auto) 1.4 Baso % (Auto) 0.4 Neut # 7.1 H Lymph # 1.9 Daggett # 1.1 H Eos # 0.1 Baso # 0.0 Sodium 140 Potassium 3.2 L Chloride 107 Carbon Dioxide 25 Anion Gap 11 BUN 11 Creatinine 0.6 L Est GFR ( Amer) > 60 Est GFR (Non-Af Amer) > 60 Random Glucose 109 Calcium 8.3 L Ferritin 46.2 Total Bilirubin 0.5 AST 36 ALT 26 Alkaline Phosphatase 82 Total Protein 5.6 L Albumin 2.9 L Globulin 2.7 Albumin/Globulin Ratio 1.1 Prostate Specific Ag Vitamin B12 525 C. difficile Ag & Toxin Critical Care Progress Note - Nutrition Nutrition: Nutrition Category Date Time Status NPO Diet [DIET] Diets 10/30/16 Breakfast Active Assessment/Plan (1) Upper gastrointestinal bleeding Current Visit: Yes Status: Acute Comment: Protonix drip switched tpo IV BID S/p 2 units prbc transfused NPO EGD this morning (2) Anemia Current Visit: Yes Status: Acute Comment: Doni temple, transfuse for Hb <7 (3) Lung mass Current Visit: Yes Status: Acute Comment: Pulmonary consult for posssible Bronch Vs CT guided biopsy Oncology consult eval appretiated (4) Tobacco abuse Current Visit: Yes Status: Acute (5) DVT prophylaxis Current Visit: No Status: Acute
[2016-11-01 10:21] LABS: RETIC% 3.1 % (0.5-1.5)
[2016-11-01] MEDS ORDERED: Lactated Ringer's 500 ML IV ONE (12:17)
[2016-11-01] MEDS ORDERED: Propofol 10 mg/ml Inj (20 ML) ONE (12:43)
--- NOTE | 2016-11-01 14:52 | CON ---
DATE: 11/01/2016 HISTORY OF PRESENT ILLNESS: The patient is a 66-year-old male, chronic cigarette smoker, half pack a day for approximately 50 years, who is admitted because of coffee-ground vomitus and referred for pu lmonary evaluation because of a left upper lobe mass found on chest x-ray and CAT scan. He denies co ugh, shortness of breath or chest pain. FAMILY HISTORY: Noncontributory. SOCIAL HISTORY: As mentioned, he smokes half a pack of cigarettes a day. PHYSICAL EXAMINATION: GENERAL: The patient is awake, alert, oriented, appears to be comfortable at present, but somewhat a nxious. VITAL SIGNS: Remarkable for blood pressure of 104/54, pulse 87, respiratory rate 22, afebrile. O2 s at 99% on room air. SKIN: Shows fair turgor. HEENT: Pupils equal and react to light and accommodation. NECK: JVP flat. LUNGS: Clear. HEART: Regular. No murmurs or gallops. ABDOMEN: Soft, nontender, no organomegaly. EXTREMITIES: Show no edema or cyanosis. CENTRAL NERVOUS SYSTEM: Grossly intact. LABORATORY DATA: Chest x-ray and CT scan of the chest both remarkable for left upper lobe mass that is suspicious for malignancy. IMPRESSION: Left lung mass, rule out malignancy, doubt infectious etiology. Coffee ground vomitus r ule out a gastrointestinal bleed. PLAN: To perform bronchoscopy with biopsy and lavage. Case discussed with patient and Dr. Nichols at bedside. The patient to decide if he wants to undergo the procedure. I will speak with him after he discusses the issue with his family. Umair Prather MD cc: [id number] TT: 11/01/2016 14:52:00 Confirmation # [id number] Dictation # [id number] topher
[2016-11-01] MEDS: Pantoprazole 40 mg EC Tab PO SCH (18:16)
[2016-11-02] MEDS: Piperacillin/Tazobact 4.5 GM in Sodium Chloride 0.9% 100 ML IVPB SCH ×3 (00:11→16:04)
[2016-11-02] MEDS: Sodium Chloride 0.9% 1,000 ML IV SCH (03:47)
--- NOTE | 2016-11-02 08:24 | CP.PCM.PN ---
Subjective - Date & Time of Evaluation Date of Evaluation: 11/02/16 Time of Evaluation: 08:22 - Subjective Subjective: no complaints/distress. no further bleeding after egd w/ duodenal ulcer. bw athis am pending. for bx lung friday. Objective - Vital Signs/Intake and Output Vital Signs (last 24 hours): Temp Pulse Resp BP Pulse Ox 99.8 F H 89 20 114/63 98 11/02/16 04:00 11/02/16 04:00 11/02/16 04:00 11/02/16 04:00 11/02/16 04:00 Intake and Output: 11/02/16 11/02/16 06:59 18:59 Intake Total 1075 Output Total 360 150 Balance 715 -150 - Medications Medications: Current Medications Piperacillin Sod/Tazobactam (Sod 4.5 gm/ Sodium Chloride) 100 mls @ 100 mls/hr IVPB Q8 [facility] Last Admin: 11/02/16 00:11 Dose: 100 mls/hr Sodium Chloride (Sodium Chloride 0.9%) 1,000 mls @ 75 mls/hr IV .[id number] [facility] Stop: 11/02/16 14:31 Last Admin: 11/02/16 03:47 Dose: 75 mls/hr Lidocaine (Lidoderm) 1 ea TD DAILY [facility] Last Admin: 11/01/16 08:50 Dose: 1 ea Pantoprazole Sodium (Protonix Inj) 40 mg IVP Q12 [facility] Last Admin: 11/01/16 22:00 Dose: Not Given Pantoprazole Sodium (Protonix Ec Tab) 40 mg PO BID [facility] Last Admin: 11/01/16 18:16 Dose: 40 mg - Labs Labs: 11/01/16 04:20 11/01/16 04:20 PT 11.3 SECONDS (9.6-11.2) H 10/30/16 17:40 INR 1.09 (0.92-1.08) H 10/30/16 17:40 APTT 21.9 SECONDS (23.3-32.5) L 10/30/16 17:40 - Constitutional Appears: Well, Non-toxic, No Acute Distress - Head Exam Head Exam: ATRAUMATIC, NORMAL INSPECTION, NORMOCEPHALIC - Eye Exam Eye Exam: EOMI, Normal appearance, PERRL Pupil Exam: NORMAL ACCOMODATION, PERRL - ENT Exam ENT Exam: Mucous Membranes Moist, Normal Exam - Neck Exam Neck Exam: Full ROM, Normal Inspection. absent: Lymphadenopathy - Respiratory Exam Respiratory Exam: Clear to Ausculation Bilateral, NORMAL BREATHING PATTERN - Cardiovascular Exam Cardiovascular Exam: REGULAR RHYTHM, RRR, +S1, +S2. absent: Murmur - GI/Abdominal Exam GI & Abdominal Exam: Soft, Normal Bowel Sounds. absent: Tenderness - Extremities Exam Extremities Exam: Full ROM, Normal Capillary Refill, Normal Inspection. absent : Joint Swelling, Pedal Edema - Back Exam Back Exam: NORMAL INSPECTION - Neurological Exam Neurological Exam: Alert, Awake, CN II-XII Intact, Normal Gait, Oriented x3 - Psychiatric Exam Psychiatric exam: Normal Affect, Normal Mood - Skin Skin Exam: Dry, Intact, Normal Color, Warm Assessment and Plan (1) Lung mass Status: Acute (2) GI (gastrointestinal bleed) Status: Acute (3) DVT prophylaxis Status: Acute - Assessment and Plan (Free Text) Assessment: (1) Lung mass Assessment and Plan: heme/onc, pulm smoking cessation bx friday Status: Acute (2) GI (gastrointestinal bleed) Assessment and Plan: gi ostretide ivf icu care zosyn egd today transfuse prn no further bleeding Status: Acute (3) DVT prophylaxis Assessment and Plan: scd and ae hose no anticoag r/t gib Status: Acute
[2016-11-02] MEDS: Lidocaine 5% Patch TD SCH (08:40)
[2016-11-02] MEDS: Pantoprazole 40 mg EC Tab PO SCH ×2 (08:41→16:04)
[2016-11-02 09:45] LABS: MEAN CELL VOLUME 95.4 fl (80.0-94.0); MEAN CORPUSCULAR HGB CONC 33.6 g/dL (33.0-37.0); RED CELL DISTRIBUTION WIDTH 16.1 % (11.5-14.5); WHITE BLOOD COUNT 9.1 K/uL (4.8-10.8)
[2016-11-02 10:43] LABS: BLOOD UREA NITROGEN 6 mg/dl (9-20); CALCIUM 8.5 mg/dL (8.4-10.2); CARBON DIOXIDE 24 mmol/L (22-30); CHLORIDE 105 mmol/L (98-107); GFR AFRICAN-AMERICAN > 60; GLUCOSE,RANDOM 150 mg/dL (75-110); SODIUM 137 mmol/l (132-148)
[2016-11-02] MEDS ORDERED: Potassium Chloride 20 mEq ER Tab PO ONE (10:59)
--- NOTE | 2016-11-02 11:40 | CP.PCM.PN ---
Subjective - Date & Time of Evaluation Date of Evaluation: 11/02/16 Time of Evaluation: 11:42 - Subjective Subjective: NO APPARENT DISTRESS NO COUGH/CHEST PAINS/SOB Objective - Vital Signs/Intake and Output Vital Signs (last 24 hours): Temp Pulse Resp BP Pulse Ox 98.3 F 99 H 14 125/52 L 98 11/02/16 09:00 11/02/16 09:00 11/02/16 09:00 11/02/16 09:00 11/02/16 09:00 Intake and Output: 11/02/16 11/02/16 06:59 18:59 Intake Total 1075 100 Output Total 360 150 Balance 715 -50 - Medications Medications: Current Medications Piperacillin Sod/Tazobactam (Sod 4.5 gm/ Sodium Chloride) 100 mls @ 100 mls/hr IVPB Q8 [facility] Last Admin: 11/02/16 08:41 Dose: 100 mls/hr Sodium Chloride (Sodium Chloride 0.9%) 1,000 mls @ 75 mls/hr IV .[id number] [facility] Stop: 11/02/16 14:31 Last Admin: 11/02/16 03:47 Dose: 75 mls/hr Lidocaine (Lidoderm) 1 ea TD DAILY [facility] Last Admin: 11/02/16 08:40 Dose: 1 ea Pantoprazole Sodium (Protonix Ec Tab) 40 mg PO BID [facility] Last Admin: 11/02/16 08:41 Dose: 40 mg - Labs Labs: 11/02/16 08:30 11/02/16 10:00 PT 11.3 SECONDS (9.6-11.2) H 10/30/16 17:40 INR 1.09 (0.92-1.08) H 10/30/16 17:40 APTT 21.9 SECONDS (23.3-32.5) L 10/30/16 17:40 - Constitutional Appears: No Acute Distress - Head Exam Head Exam: ATRAUMATIC, NORMAL INSPECTION, NORMOCEPHALIC - Eye Exam Eye Exam: EOMI, Normal appearance, PERRL Pupil Exam: NORMAL ACCOMODATION, PERRL - ENT Exam ENT Exam: Mucous Membranes Moist, Normal Exam - Neck Exam Neck Exam: Full ROM, Normal Inspection. absent: Lymphadenopathy - Respiratory Exam Respiratory Exam: Clear to Ausculation Bilateral, NORMAL BREATHING PATTERN - Cardiovascular Exam Cardiovascular Exam: REGULAR RHYTHM, +S1, +S2. absent: Murmur - GI/Abdominal Exam GI & Abdominal Exam: Soft, Normal Bowel Sounds. absent: Tenderness - Rectal Exam Rectal Exam: NORMAL INSPECTION - Extremities Exam Extremities Exam: Full ROM, Normal Capillary Refill, Normal Inspection. absent : Joint Swelling, Pedal Edema - Back Exam Back Exam: NORMAL INSPECTION - Neurological Exam Neurological Exam: Alert, Awake, CN II-XII Intact, Normal Gait, Oriented x3 - Psychiatric Exam Psychiatric exam: Normal Affect, Normal Mood - Skin Skin Exam: Dry, Intact, Normal Color, Warm Assessment and Plan - Assessment and Plan (Free Text) Assessment: L LING MASS--R/O MALIGNANCY GI BLEED-STABLE Plan: BRONCHOSCOPY DISCUSSED WITH PT HE AGREES WITH NEED FOR PROCEDURE WILL ATTEMPT TO SCHEDULE FOR NEXT WEEK
--- NOTE | 2016-11-02 17:24 | CP.PCM.CON ---
History of Present Illness - History of Present Illness History of Present Illness: Feeling better, tolerating PO Past Patient History - Past Medical History & Family History Past Medical History?: Yes - Past Social History Smoking Status: Current Some Days Smoker - CARDIAC Hx Hypercholesterolemia: Yes Hx Hypertension: Yes - PULMONARY Hx Respiratory Disorders: No Other/Comment: SMOKER - NEUROLOGICAL Hx Neurological Disorder: No - HEENT Hx HEENT Problems: No - RENAL Hx Chronic Kidney Disease: No - INTEGUMENTARY Hx Dermatological Problems: Yes Hx Cellulitis: Yes Other/Comment: CHRONIC LEG PAIN - MUSCULOSKELETAL/RHEUMATOLOGICAL Hx Falls: No - GASTROINTESTINAL Hx Gastrointestinal Disorders: No - GENITOURINARY/GYNECOLOGICAL Hx Genitourinary Disorders: No - PSYCHIATRIC Hx Substance Use: No - SURGICAL HISTORY Hx Coronary Artery Bypass Graft: Yes Hx Coronary Stent: Yes Hx Femoral-Popliteal Bypass Graft: Yes - ANESTHESIA Hx Anesthesia: Yes Hx Anesthesia Reactions: No Hx Malignant Hyperthermia: No Meds Allergies/Adverse Reactions: Allergies Allergy/AdvReac Type Severity Reaction Status Date / Time No Known Allergies Allergy Verified 06/09/16 15:31 - Medications Medications: Current Medications Piperacillin Sod/Tazobactam (Sod 4.5 gm/ Sodium Chloride) 100 mls @ 100 mls/hr IVPB Q8 [facility] Last Admin: 11/02/16 16:04 Dose: 100 mls/hr Lidocaine (Lidoderm) 1 ea TD DAILY [facility] Last Admin: 11/02/16 08:40 Dose: 1 ea Pantoprazole Sodium (Protonix Ec Tab) 40 mg PO BID [facility] Last Admin: 11/02/16 16:04 Dose: 40 mg Physical Exam - Head Exam Head Exam: ATRAUMATIC - Eye Exam Eye Exam: Normal appearance - ENT Exam ENT Exam: Mucous Membranes Dry - Respiratory Exam Respiratory Exam: NORMAL BREATHING PATTERN - Cardiovascular Exam Cardiovascular Exam: +S1, +S2 - GI/Abdominal Exam GI & Abdominal Exam: Normal Bowel Sounds - Extremities Exam Extremities exam: Positive for: normal inspection Results - Vital Signs Recent Vital Signs: Last Vital Signs Temp 99 F 11/02/16 15:53 Pulse 97 H 11/02/16 15:53 Resp 14 11/02/16 09:00 BP 140/80 11/02/16 15:53 Pulse Ox 100 11/02/16 15:53 - Labs Result Diagrams: 11/02/16 08:30 11/02/16 10:00 Labs: Laboratory Results - last 24 hr 11/01/16 11/02/16 11/02/16 04:20 08:30 10:00 WBC 9.1 RBC 2.62 L Hgb 8.4 L Hct 25.0 L MCV 95.4 H D MCH 32.0 H MCHC 33.6 RDW 16.1 H Plt Count 251 Sodium 137 Potassium 3.0 L Chloride 105 Carbon Dioxide 24 Anion Gap 11 BUN 6 L Creatinine 0.5 L Est GFR ( Amer) > 60 Est GFR (Non-Af Amer) > 60 Random Glucose 150 H Calcium 8.5 Folate 18.0 Assessment & Plan (1) Anemia Assessment and Plan: H/H fairly stable borderline iron stores; will give Venofer Status: Acute (2) Lung mass Assessment and Plan: pt agreeable for bronchoscopy rule out malignancy Status: Acute (3) Tobacco abuse Assessment and Plan: smoking cessation Status: Acute
[2016-11-03] MEDS: Piperacillin/Tazobact 4.5 GM in Sodium Chloride 0.9% 100 ML IVPB SCH ×3 (01:14→16:27)
[2016-11-03 06:54] LABS: BASO % 0.4 % (0.0-2.0); EOS # 0.2 K/uL (0.0-0.7); EOS % 2.4 % (0.0-4.0); HEMATOCRIT 24.9 % (35.0-51.0); LYMPH # 1.6 K/uL (1.0-4.3); LYMPH % 18.2 % (20.0-40.0); MEAN CELL VOLUME 94.9 fl (80.0-94.0); MEAN CORPUSCULAR HEMOGLOBIN 32.2 pg (27.0-31.0); MEAN CORPUSCULAR HGB CONC 33.9 g/dL (33.0-37.0); MEAN PLATELET VOLUME 6.9 fl (7.2-11.7); MONO # 0.8 K/uL (0.0-0.8); MONO % 9.4 % (0.0-10.0); NEUT % 69.6 % (50.0-75.0); RED CELL DISTRIBUTION WIDTH 15.6 % (11.5-14.5); WHITE BLOOD COUNT 8.6 K/uL (4.8-10.8)
[2016-11-03 06:56] LABS: ALKALINE PHOSPHATASE 81 U/L (38-126); ALT/SGPT 32 U/L (21-72); AST/SGOT 38 U/L (17-59); BILIRUBIN,TOTAL 0.3 mg/dl (0.2-1.3); BLOOD UREA NITROGEN 5 mg/dl (9-20); CALCIUM 8.4 mg/dL (8.4-10.2); CARBON DIOXIDE 27 mmol/L (22-30); CHLORIDE 105 mmol/L (98-107); GFR AFRICAN-AMERICAN > 60; GLUCOSE,RANDOM 122 mg/dL (75-110); POTASSIUM 2.8 MMOL/L (3.6-5.0); SODIUM 141 mmol/l (132-148); TOTAL PROTEIN 6.1 G/DL (6.3-8.2)
[2016-11-03] MEDS: Pantoprazole 40 mg EC Tab PO SCH ×2 (09:16→16:26)
[2016-11-03] MEDS: Lidocaine 5% Patch TD SCH (09:16)
[2016-11-03] MEDS: Potassium Chloride 20 mEq ER Tab PO SCH ×3 (09:36→16:26)
[2016-11-03] MEDS ORDERED: Potassium CL 10mEq/100ml 100 ML IVPB SCH (10:00)
--- NOTE | 2016-11-03 10:48 | CP.PCM.PN ---
Subjective - Date & Time of Evaluation Date of Evaluation: 11/03/16 Time of Evaluation: 10:48 - Subjective Subjective: no new complaints no chest pains/sob Objective - Vital Signs/Intake and Output Vital Signs (last 24 hours): Temp Pulse Resp BP Pulse Ox 98.6 F 79 16 133/66 100 11/03/16 08:06 11/03/16 08:06 11/03/16 08:06 11/03/16 08:06 11/03/16 08:06 Intake and Output: 11/03/16 11/03/16 06:59 18:59 Intake Total 650 120 Output Total 250 Balance 400 120 - Medications Medications: Current Medications Piperacillin Sod/Tazobactam (Sod 4.5 gm/ Sodium Chloride) 100 mls @ 100 mls/hr IVPB Q8 [facility] Last Admin: 11/03/16 09:15 Dose: 100 mls/hr Iron Sucrose 200 mg/ Sodium (Chloride) 110 mls @ 110 mls/hr IVPB DAILY [facility] Stop: 11/06/16 09:01 Last Admin: 11/03/16 10:18 Dose: 110 mls/hr Lidocaine (Lidoderm) 1 ea TD DAILY [facility] Last Admin: 11/03/16 09:16 Dose: 1 ea Pantoprazole Sodium (Protonix Ec Tab) 40 mg PO BID [facility] Last Admin: 11/03/16 09:16 Dose: 40 mg Potassium Chloride (K-Dur 20 Meq Er Tab) 20 meq PO TID [facility] Stop: 11/03/16 17:01 Last Admin: 11/03/16 09:36 Dose: 20 meq - Labs Labs: 11/03/16 05:30 11/03/16 05:30 PT 11.3 SECONDS (9.6-11.2) H 10/30/16 17:40 INR 1.09 (0.92-1.08) H 10/30/16 17:40 APTT 21.9 SECONDS (23.3-32.5) L 10/30/16 17:40 - Constitutional Appears: Well - Head Exam Head Exam: ATRAUMATIC, NORMAL INSPECTION, NORMOCEPHALIC - Eye Exam Eye Exam: EOMI, Normal appearance, PERRL Pupil Exam: NORMAL ACCOMODATION, PERRL - ENT Exam ENT Exam: Mucous Membranes Moist, Normal Exam - Neck Exam Neck Exam: Full ROM, Normal Inspection. absent: Lymphadenopathy - Respiratory Exam Respiratory Exam: Clear to Ausculation Bilateral, NORMAL BREATHING PATTERN - Cardiovascular Exam Cardiovascular Exam: REGULAR RHYTHM, +S1, +S2. absent: Murmur - GI/Abdominal Exam GI & Abdominal Exam: Soft, Normal Bowel Sounds. absent: Tenderness - Rectal Exam Rectal Exam: NORMAL INSPECTION - Extremities Exam Extremities Exam: Full ROM, Normal Capillary Refill, Normal Inspection. absent : Joint Swelling, Pedal Edema - Back Exam Back Exam: NORMAL INSPECTION - Neurological Exam Neurological Exam: Alert, Awake, CN II-XII Intact, Normal Gait, Oriented x3 - Psychiatric Exam Psychiatric exam: Normal Affect, Normal Mood - Skin Skin Exam: Dry, Intact, Normal Color, Warm Assessment and Plan - Assessment and Plan (Free Text) Assessment: lung mass--r/o malignancy Plan: npo after midnight for bronchoscopy
--- NOTE | 2016-11-03 10:52 | CP.PCM.PN ---
Subjective - Date & Time of Evaluation Date of Evaluation: 11/03/16 Time of Evaluation: 10:51 - Subjective Subjective: pt in bed, no distress/complaints. no f/c, n/v/d. for bron tomorrow. npo p midnight. bw noted. kdur ordered. k 2.9 Objective - Vital Signs/Intake and Output Vital Signs (last 24 hours): Temp Pulse Resp BP Pulse Ox 98.6 F 79 16 133/66 100 11/03/16 08:06 11/03/16 08:06 11/03/16 08:06 11/03/16 08:06 11/03/16 08:06 Intake and Output: 11/03/16 11/03/16 06:59 18:59 Intake Total 650 120 Output Total 250 Balance 400 120 - Medications Medications: Current Medications Piperacillin Sod/Tazobactam (Sod 4.5 gm/ Sodium Chloride) 100 mls @ 100 mls/hr IVPB Q8 [facility] Last Admin: 11/03/16 09:15 Dose: 100 mls/hr Iron Sucrose 200 mg/ Sodium (Chloride) 110 mls @ 110 mls/hr IVPB DAILY [facility] Stop: 11/06/16 09:01 Last Admin: 11/03/16 10:18 Dose: 110 mls/hr Lidocaine (Lidoderm) 1 ea TD DAILY [facility] Last Admin: 11/03/16 09:16 Dose: 1 ea Pantoprazole Sodium (Protonix Ec Tab) 40 mg PO BID [facility] Last Admin: 11/03/16 09:16 Dose: 40 mg Potassium Chloride (K-Dur 20 Meq Er Tab) 20 meq PO TID [facility] Stop: 11/03/16 17:01 Last Admin: 11/03/16 09:36 Dose: 20 meq - Labs Labs: 11/03/16 05:30 11/03/16 05:30 PT 11.3 SECONDS (9.6-11.2) H 10/30/16 17:40 INR 1.09 (0.92-1.08) H 10/30/16 17:40 APTT 21.9 SECONDS (23.3-32.5) L 10/30/16 17:40 - Constitutional Appears: Well, Non-toxic, No Acute Distress - Head Exam Head Exam: ATRAUMATIC, NORMAL INSPECTION, NORMOCEPHALIC - Eye Exam Eye Exam: EOMI, Normal appearance, PERRL Pupil Exam: NORMAL ACCOMODATION, PERRL - ENT Exam ENT Exam: Mucous Membranes Moist, Normal Exam - Neck Exam Neck Exam: Full ROM, Normal Inspection. absent: Lymphadenopathy - Respiratory Exam Respiratory Exam: Clear to Ausculation Bilateral, NORMAL BREATHING PATTERN - Cardiovascular Exam Cardiovascular Exam: REGULAR RHYTHM, RRR, +S1, +S2. absent: Murmur - GI/Abdominal Exam GI & Abdominal Exam: Soft, Normal Bowel Sounds. absent: Tenderness - Extremities Exam Extremities Exam: Full ROM, Normal Capillary Refill, Normal Inspection. absent : Joint Swelling, Pedal Edema - Back Exam Back Exam: NORMAL INSPECTION - Neurological Exam Neurological Exam: Alert, Awake, CN II-XII Intact, Normal Gait, Oriented x3 - Psychiatric Exam Psychiatric exam: Normal Affect, Normal Mood - Skin Skin Exam: Dry, Intact, Normal Color, Warm Assessment and Plan (1) Lung mass Status: Acute (2) GI (gastrointestinal bleed) Status: Acute (3) DVT prophylaxis Status: Acute - Assessment and Plan (Free Text) Assessment: (1) Lung mass Assessment and Plan: heme/onc, pulm smoking cessation bx friday Status: Acute (2) GI (gastrointestinal bleed) Assessment and Plan: gi ostretide ivf icu care zosyn egd today transfuse prn no further bleeding Status: Acute (3) DVT prophylaxis Assessment and Plan: scd and ae hose no anticoag r/t gib Status: Acute 4. persistent hypokalemia-kdur ordered, trend k
[2016-11-04] MEDS: Piperacillin/Tazobact 4.5 GM in Sodium Chloride 0.9% 100 ML IVPB SCH ×3 (00:29→16:20)
[2016-11-04 04:47] LABS: HEMATOCRIT 24.8 % (35.0-51.0); MEAN CELL VOLUME 95.4 fl (80.0-94.0); MEAN CORPUSCULAR HEMOGLOBIN 31.7 pg (27.0-31.0); MEAN CORPUSCULAR HGB CONC 33.2 g/dL (33.0-37.0); RED CELL DISTRIBUTION WIDTH 15.7 % (11.5-14.5); WHITE BLOOD COUNT 9.3 K/uL (4.8-10.8)
[2016-11-04 04:54] LABS: CHLORIDE 107 mmol/L (98-107); POTASSIUM 3.1 MMOL/L (3.6-5.0); SODIUM 141 mmol/l (132-148)
[2016-11-04 04:56] LABS: GFR AFRICAN-AMERICAN > 60
[2016-11-04 04:57] LABS: BLOOD UREA NITROGEN 9 mg/dl (9-20); CALCIUM 8.6 mg/dL (8.4-10.2); CARBON DIOXIDE 27 mmol/L (22-30); GLUCOSE,RANDOM 106 mg/dL (75-110)
--- NOTE | 2016-11-04 07:23 | CP.PCM.PN ---
Subjective - Date & Time of Evaluation Date of Evaluation: 11/04/16 Time of Evaluation: 07:23 - Subjective Subjective: no complaints/distress been npo for posisble lung bx/bronc today no diarrhea, no further bleeding. hgb stable bw noted. k 3.1 Objective - Vital Signs/Intake and Output Vital Signs (last 24 hours): Temp Pulse Resp BP Pulse Ox 98.4 F 98 H 18 128/66 100 11/03/16 20:14 11/03/16 20:14 11/03/16 20:14 11/03/16 20:14 11/03/16 20:14 - Medications Medications: Current Medications Piperacillin Sod/Tazobactam (Sod 4.5 gm/ Sodium Chloride) 100 mls @ 100 mls/hr IVPB Q8 [facility] Last Admin: 11/04/16 00:29 Dose: 100 mls/hr Iron Sucrose 200 mg/ Sodium (Chloride) 110 mls @ 110 mls/hr IVPB DAILY [facility] Stop: 11/06/16 09:01 Last Admin: 11/03/16 10:18 Dose: 110 mls/hr Potassium Chloride (Potassium Chloride 10 Meq/100 Ml) 100 mls @ 100 mls/hr IVPB Q1 [facility] Stop: 11/04/16 10:59 Lidocaine (Lidoderm) 1 ea TD DAILY [facility] Last Admin: 11/03/16 09:16 Dose: 1 ea Ondansetron HCl (Zofran Inj) 4 mg IVP Q4 PRN PRN Reason: Nausea/Vomiting Last Admin: 11/04/16 01:24 Dose: 4 mg Pantoprazole Sodium (Protonix Ec Tab) 40 mg PO BID [facility] Last Admin: 11/03/16 16:26 Dose: 40 mg - Labs Labs: 11/04/16 04:25 11/04/16 04:25 PT 11.3 SECONDS (9.6-11.2) H 10/30/16 17:40 INR 1.09 (0.92-1.08) H 10/30/16 17:40 APTT 21.9 SECONDS (23.3-32.5) L 10/30/16 17:40 - Constitutional Appears: Well, Non-toxic, No Acute Distress - Head Exam Head Exam: ATRAUMATIC, NORMAL INSPECTION, NORMOCEPHALIC - Eye Exam Eye Exam: EOMI, Normal appearance, PERRL Pupil Exam: NORMAL ACCOMODATION, PERRL - ENT Exam ENT Exam: Mucous Membranes Moist, Normal Exam - Neck Exam Neck Exam: Full ROM, Normal Inspection. absent: Lymphadenopathy - Respiratory Exam Respiratory Exam: Clear to Ausculation Bilateral, NORMAL BREATHING PATTERN - Cardiovascular Exam Cardiovascular Exam: REGULAR RHYTHM, RRR, +S1, +S2. absent: Murmur - GI/Abdominal Exam GI & Abdominal Exam: Soft, Normal Bowel Sounds. absent: Tenderness - Extremities Exam Extremities Exam: Full ROM, Normal Capillary Refill, Normal Inspection. absent : Joint Swelling, Pedal Edema - Back Exam Back Exam: Full ROM, NORMAL INSPECTION - Neurological Exam Neurological Exam: Alert, Awake, CN II-XII Intact, Normal Gait, Oriented x3 - Psychiatric Exam Psychiatric exam: Normal Affect, Normal Mood - Skin Skin Exam: Dry, Intact, Normal Color, Warm Assessment and Plan (1) Lung mass Status: Acute (2) GI (gastrointestinal bleed) Status: Acute (3) DVT prophylaxis Status: Acute - Assessment and Plan (Free Text) Assessment: (1) Lung mass Assessment and Plan: heme/onc, pulm smoking cessation bx friday-or Status: Acute (2) GI (gastrointestinal bleed) Assessment and Plan: gi no further bleeding, r/t dudenal ulcer ppi Status: Acute (3) DVT prophylaxis Assessment and Plan: scd and ae hose no anticoag r/t gib Status: Acute 4. persistent hypokalemia-kcl ordered, trend k
[2016-11-04] MEDS: Potassium CL 10mEq/100ml 100 ML IVPB SCH ×4 (07:39→11:29)
[2016-11-04] MEDS ORDERED: Lactated Ringer's 500 ML IV ONE (08:50)
[2016-11-04] MEDS ORDERED: Lidocaine 1% Inj (20ml) IJ ONE (08:55)
[2016-11-04] MEDS ORDERED: Lidocaine 2% Jelly (5 ml) TOP ONE (08:57)
[2016-11-04] MEDS: Pantoprazole 40 mg EC Tab PO SCH ×2 (09:40→16:18)
--- NOTE | 2016-11-04 11:38 | PROCN ---
DATE: 11/04/2016 PROCEDURE: Fiberoptic bronchoscopy with transbronchial biopsy washings and brushings. INDICATIONS: Left upper lobe mass in a chronic cigarette-smoker. The procedure was done in the endoscopy suite under aseptic conditions after carefully anesthetizing the patient's upper airway with 1% Xylocaine solution. The patient also received IV sedation with th e anesthesia. The bronchoscope was inserted via the right nostril to the vocal cords, which appeared normal. The entire tracheobronchial tree appeared normal with no endobronchial lesions or secretion s and no erythema. Washings, brushings, and transbronchial biopsies were taken from the left upper l obe, transbronchial segment, and sent for analysis. The patient tolerated the procedure well. No blood was lost during the procedure. The patient was transported back to the intensive care unit in excellent condition. IMPRESSION: Post-bronchoscopy is left upper lobe mass, rule out malignancy. PLAN: Await the pathology report. The patient could be discharged home later in the day if clinical ly stable. We will await pathology report. Umair Prather MD cc: [id number] TT: 11/04/2016 11:38:13 Confirmation # [id number] Dictation # [id number] topher
[2016-11-04] MEDS: Lidocaine 5% Patch TD SCH (12:40)
--- NOTE | 2016-11-04 13:16 | CP.PCM.PN ---
Subjective - Date & Time of Evaluation Date of Evaluation: 11/04/16 Time of Evaluation: 13:15 - Subjective Subjective: doing well Objective - Vital Signs/Intake and Output Vital Signs (last 24 hours): Temp Pulse Resp BP Pulse Ox 98.6 F 109 H 17 132/71 97 11/04/16 10:15 11/04/16 10:15 11/04/16 10:15 11/04/16 10:15 11/04/16 10:15 Intake and Output: 11/04/16 11/04/16 06:59 18:59 Intake Total 450 Output Total 150 Balance 300 - Medications Medications: Current Medications Piperacillin Sod/Tazobactam (Sod 4.5 gm/ Sodium Chloride) 100 mls @ 100 mls/hr IVPB Q8 [facility] Last Admin: 11/04/16 00:29 Dose: 100 mls/hr Iron Sucrose 200 mg/ Sodium (Chloride) 110 mls @ 110 mls/hr IVPB DAILY [facility] Stop: 11/06/16 09:01 Last Admin: 11/03/16 10:18 Dose: 110 mls/hr Lidocaine (Lidoderm) 1 ea TD DAILY [facility] Last Admin: 11/04/16 12:40 Dose: 1 ea Ondansetron HCl (Zofran Inj) 4 mg IVP Q4 PRN PRN Reason: Nausea/Vomiting Last Admin: 11/04/16 01:24 Dose: 4 mg Pantoprazole Sodium (Protonix Ec Tab) 40 mg PO BID [facility] Last Admin: 11/04/16 09:40 Dose: Not Given - Labs Labs: 11/04/16 04:25 11/04/16 04:25 PT 11.3 SECONDS (9.6-11.2) H 10/30/16 17:40 INR 1.09 (0.92-1.08) H 10/30/16 17:40 APTT 21.9 SECONDS (23.3-32.5) L 10/30/16 17:40 - GI/Abdominal Exam GI & Abdominal Exam: Soft, Normal Bowel Sounds Assessment and Plan - Assessment and Plan (Free Text) Assessment: 66 yo male with gib hgb stable dc planning
[2016-11-04 14:49] VITALS: BP 137/88; O2SAT 99
--- NOTE | 2016-11-04 14:50 | RAD ---
PROCEDURE: Lumbar Epidural Injection HISTORY: BRONCHOSCOPY LEFT UPPER LOBE TECHNIQUE: Fluoroscopic guidance was provided for epidural injection for pain management purposes. FINDINGS: IMPRESSION: Fluoroscopic guidance provided for epidural injection. Please refer procedure.
[2016-11-04 15:45] VITALS: PULSE 102; RESP 20; TEMP 98.5
--- NOTE | 2016-11-04 16:32 | RAD ---
PROCEDURE: CHEST RADIOGRAPH, 1 VIEW HISTORY: POST BRONCHOSCOPY COMPARISON: 10/30/2016. FINDINGS: LUNGS: Stable left upper lobe mass. PLEURA: No pneumothorax or pleural fluid seen. CARDIOVASCULAR: Normal. OSSEOUS STRUCTURES: No significant abnormalities. VISUALIZED UPPER ABDOMEN: Normal. OTHER FINDINGS: None. IMPRESSION: No adverse findings following bronchoscopy. No evidence of pneumothorax or other significant/ acute pathologic process.
[2016-11-04 17:35] LABS: BLOOD UREA NITROGEN 12 mg/dl (9-20); CALCIUM 9.1 mg/dL (8.4-10.2); CARBON DIOXIDE 29 mmol/L (22-30); CHLORIDE 103 mmol/L (98-107); GFR AFRICAN-AMERICAN > 60; GLUCOSE,RANDOM 129 mg/dL (75-110); POTASSIUM 4.4 MMOL/L (3.6-5.0); SODIUM 140 mmol/l (132-148)
== END 2016-11-04 19:01 | disposition home or self-care (01) | DRG 167 ==
LOC: H.ER 17:15 → H.ERHOLD 18:46 → H.ICU/CCU 23:22
PROVIDERS: ADMIT Family Medicine; ATTEND Family Medicine
PROC: 0DB98ZX Excision of Duodenum, Via Natural or Artificial Opening Endoscopic, Diagnostic (ICD-10-PCS; 2016-11-01)
PROC: 0DB68ZX Excision of Stomach, Via Natural or Artificial Opening Endoscopic, Diagnostic (ICD-10-PCS; 2016-11-01)
PROC: 0BBG8ZX Excision of Left Upper Lung Lobe, Via Natural or Artificial Opening Endoscopic, Diagnostic (ICD-10-PCS; principal; 2016-11-04 10:00)
DX: C34.92 Malignant neoplasm of unspecified part of left bronchus or lung (principal); K92.0 Hematemesis; I10 Essential (primary) hypertension; F17.210 Nicotine dependence, cigarettes, uncomplicated; D64.9 Anemia, unspecified; I25.10 Atherosclerotic heart disease of native coronary artery without angina pectoris; G89.29 Other chronic pain; E78.00 Pure hypercholesterolemia, unspecified; Z79.84 Long term (current) use of oral hypoglycemic drugs; Z95.5 Presence of coronary angioplasty implant and graft; R91.8 Other nonspecific abnormal finding of lung field; K44.9 Diaphragmatic hernia without obstruction or gangrene; K31.9 Disease of stomach and duodenum, unspecified; K26.9 Duodenal ulcer, unspecified as acute or chronic, without hemorrhage or perforation; E87.6 Hypokalemia; I25.2 Old myocardial infarction; Z79.02 Long term (current) use of antithrombotics/antiplatelets; Z79.899 Other long term (current) drug therapy